=== PATIENT | female | born 1970 | race Two or more races ===

== ENCOUNTER → 2017-05-26 | Outpatient (CLI) | payer OTHER ==
--- NOTE | ~2017-05-26 | MY29 ---
[facility] A Service of [facility] RADIOLOGY TEXT RESULTS PATIENT: FRANKLIN BERNARD LOCATION: [facility] : 74 UNIT #: [id number] AGE: [address]: Jairon Bullock MD SEX: F ORDER DR: [id number] [facility] [address] [place], [place] [address] [id number] O MR#: [id number] Acc #: [id number] NAME: FRANKLIN BERNARD : 1970 SEX: F STUDY DATE/TIME: 05/26/2017 11:00 UNIT: [facility] ROOM: STUDY DESCRIPTION: MY [facility] SCREENING W/ CAD BILAT Attending Physician: Jairon Bullock M.D. Referring Physician: Mindy Rushing Aprn Ordering Physician: Jairon Bullock M.D. Primary Care Physician: Jairon Bullock M.D. MEDICAL IMAGING REPORT This report is preliminary unless electronic signature is present EXAM Digital screening mammogram 05/26/2017, [facility] HISTORY 46-year-old woman, no risk elevation. Annual screen. COMPARISON None available. Previous mammogram 2016 [place] FINDINGS Digital imaging of each breast was completed utilizing screening protocol. Review includes FDA-approved CAD device. Breast parenchyma is heterogeneous with fibroglandular opacities in each breast. There is some nodularity deep to the left nipple. There are also benign punctate calcifications in each breast. I see no suspicious mass characteristics. There are no suspicious calcifications and no architectural deformity. IMPRESSION Benign mammogram. Annual screening recommended. Patient's over the age of 40 are entered into a reminder system with target due date for the next mammogram. A result letter will be sent to the patient. BIRADS: 2 Benign findings. Dictated by... Que Arriola M.D. THIS IS AN ELECTRONICALLY VERIFIED REPORT Que Arriola M.D. at 05/26/2017 3:28 PM JBB/to [facility] A Service of [facility] RADIOLOGY TEXT RESULTS PATIENT: FRANKLIN BERNARD LOCATION: [facility] : 74 UNIT #: [id number] AGE: [address]: Jairon Bullock MD SEX: F ORDER DR: TD: 05/26/2017 15:21 JOB #: [id number] MEDICAL IMAGING REPORT Page 1 of 1 COPY
== END | disposition home or self-care (01) ==
LOC: CWCC 10:36
DX: Z12.31 Encounter for screening mammogram for malignant neoplasm of breast (principal)
CPT/HCPCS: G0202